=== PATIENT | male | born 1935 | race Caucasian/White ===

== ENCOUNTER 2020-07-27 07:56 | Day surgery (SDC) | payer BC, MEDICARE ==
[~2020-07-27] VITALS: Ht 172.7 cm; Wt 68.7 kg
[~2020-07-27 07:56] MED LIST: ASPI81TA45 PO; MULT-449 PO; SIMV10TA18 PO
[2020-07-27 08:27] VITALS: BP 157/81
[2020-07-27] MEDS ORDERED: LACTATED RINGERS 1,000 ML IV SCH (08:30)
[2020-07-27] MEDS ORDERED: CHLORHEXIDINE 15 ML UDC MM ONE (08:30)
[2020-07-27] MEDS ORDERED: CHLORHEXIDINE 15 ML UDC ONE (08:34)
[2020-07-27] MEDS ORDERED: EPINEPHRINE 1 MG/ML, 1ML ONE (10:12)
[2020-07-27] MEDS ORDERED: BUPIVACAINE/PF 0.5% ONE (10:12)
[2020-07-27] MEDS ORDERED: FENTANYL PF 100 MCG/2ML ONE ×2 (10:29→11:03)
[2020-07-27] MEDS ORDERED: DEXAMETHASONE 4 MG/ML, 5ML ONE (10:33)
[2020-07-27] MEDS ORDERED: ONDANSETRON 2MG/ML, 2ML IVPush PRN (11:00)
[2020-07-27] MEDS ORDERED: HYDROmorphone 1 MG/ML, 1ML INJ IVPush PRN (11:00)
[2020-07-27] MEDS ORDERED: METHOCARBAMOL 1,000 MG in DEXTROSE 5% 100 ML IV PRN (11:00)
[2020-07-27] MEDS ORDERED: PROMETHAZINE 25 MG SUPP PR PRN (11:00)
[2020-07-27] MEDS ORDERED: FENTANYL PF 100 MCG/2ML IV PRN (11:00)
[2020-07-27] MEDS ORDERED: ACETAMINOPHEN 325 MG TABLET PO PRN (11:00)
[2020-07-27] MEDS ORDERED: hydrALAzine 20 MG/ML, 1ML IV PRN (11:00)
[2020-07-27] MEDS ORDERED: OXYcodone 5 MG/5 ML ORAL.SOL UDC PO PRN (11:00)
[2020-07-27] MEDS ORDERED: LABETALOL 5MG/ML, 20ML IV PRN (11:00)
[2020-07-27] MEDS ORDERED: PROMETHAZINE 25 MG/ML, 1ML IVPush PRN (11:00)
[2020-07-27] MEDS ORDERED: PROPOFOL 10 MG/ML, 20ML ONE (11:21)
[2020-07-27] MEDS ORDERED: NEOSTIGMINE 1 MG/ML, 10ML ONE (11:21)
[2020-07-27] MEDS ORDERED: GLYCOPYRROLATE 0.2MG/1ML, 5ML ONE (11:21)
[2020-07-27] MEDS ORDERED: CEFAZOLIN 1,000 MG ONE (11:21)
[2020-07-27] MEDS ORDERED: ROCURONIUM 10MG/ML,5ML ONE (11:21)
[2020-07-27] MEDS ORDERED: ONDANSETRON 2MG/ML, 2ML ONE (11:21)
[2020-07-27] MEDS ORDERED: SUCCINYLCHOLINE 20 MG/ML, 10ML ONE (11:21)
[2020-07-27] MEDS ORDERED: SUGAMMADEX 200 MG/2 ML IVPush ONE (11:23)
[2020-07-27] MEDS ORDERED: ACETAMINOPHEN 650 MG/20.3 ML UDC ONE (12:19)
== END 2020-07-27 15:45 | disposition home or self-care (01) ==
LOC: OUT 07:56
PROVIDERS: ATTEND Surgery
DX: K40.90 Unilateral inguinal hernia, without obstruction or gangrene, not specified as recurrent (principal); I25.10 Atherosclerotic heart disease of native coronary artery without angina pectoris; E78.5 Hyperlipidemia, unspecified; Z20.822 Contact with and (suspected) exposure to COVID-19; Z79.82 Long term (current) use of aspirin; Z79.899 Other long term (current) drug therapy; Z85.46 Personal history of malignant neoplasm of prostate; Z87.891 Personal history of nicotine dependence; Z90.79 Acquired absence of other genital organ(s); Z95.1 Presence of aortocoronary bypass graft
CPT/HCPCS: 49650; 93005; C1781; J0171; J0330; J0690; J1100; J2405; J2704; J2710; J3010; J7120; U0003